=== PATIENT | female | born 1985 | race Caucasian/White ===

== ENCOUNTER 2019-01-10 06:07 | Emergency (ER) | payer BC, OTHER ==
[2019-01-10] MEDS ORDERED: Metoclopramide 10 MG/2 ML SDV IVPUSH ONE (06:19)
[2019-01-10] MEDS ORDERED: HYDROmorphone 0.5 MG/0.5 ML Syringe IVPUSH ONE (06:21)
--- NOTE | 2019-01-10 06:24 | EDM.PDOC ---
ED HPI GENERAL MEDICAL PROBLEM - General Chief Complaint: Neuro Symptoms/Deficits Stated Complaint: STROKE ALERT Time Seen by Provider: 01/10/19 06:10 Source of Information: Reports: Patient History Limitations: Reports: No Limitations - History of Present Illness INITIAL COMMENTS - FREE TEXT/NARRATIVE: 33-year-old female who speaks broken [place] and [place] presents to the ED in the ambulance brought in by her . The patient states that when she got up this morning to get ready for work she was having difficulty raising arms above her head to do her hair. She then started to feel like she might faint she became dizzy and lightheaded but no true vertigo symptoms. She then developed done numbness and tingling in both of her hands and face. She became weak and nearly fainted. She had gone out into her car to drive to work and then decided she was feeling too unwell to drive. She kept talking the horn till her attended her in the driveway. He then was able to lift her out of the vehicle into his vehicle and bring her to the hospital. Patient was brought into the ED per wheelchair. Once into the gurney and as I was speaking with her she started to have nausea and vomiting of bilious material. He is moving all limbs. There is no sign of any focal neurological deficit and her speech is normal. No visual acuity changes. She complains of diffuse cervical neck pain. Some of this is at the base of her neck. She denies any significant headache at this time. She does not believe she could be . Onset: Today Onset Date: 01/10/19 Onset Time: 05:40 Duration: Minutes: Location: Reports: Generalized (Generalized sense of illness with dizziness lightheadedness nausea numbness and tingling in her upper extremities i.e. hypoventilation syndrome. She walked out to her vehicle and started her vehicle without any problems. She started to feel unwell in the vehicle and decided that she should not be driving.) Quality: Reports: Other Severity: Moderate (Camilo weakness with numbness and tingling in her hands and arms and feeling lightheaded and dizzy.) Improves with: Reports: None Worsens with: Reports: None. Denies: Medication Context: Denies: Activity, Exercise, Lifting, Sick Contact, Trauma, Other ( Started to have nausea and vomiting in the ER. She did have nausea at home but did not vomit) Associated Symptoms: Reports: Loss of Appetite, Malaise, Nausea/Vomiting. Denies: Confusion, Chest Pain, Cough, cough w sputum, Diaphoresis, Fever/Chills , Headaches, Rash, Seizure, Shortness of Breath, Syncope Treatments OFFICE COORDINATOR RECEPTIONIST: Reports: Other (see below) (None.) - Related Data Allergies Allergy/AdvReac Type Severity Reaction Status Date / Time No Known Allergies Allergy Verified 01/10/19 06:41 Home Meds: Home Meds Norgestimate-Ethinyl Estradiol [Sprintec 28 Day Tablet] 1 tab PO DAILY 01/10/19 [History] Ondansetron [Zofran] 4 mg BUCCAL Q6H PRN #5 tab 01/10/19 [Rx] Past Medical History : 0 Para: 0 Social & Family History - Living Situation & Occupation Living situation: Reports: Occupation: Employed ED ROS GENERAL - Review of Systems Review Of Systems: See Below Constitutional: Reports: Weakness, Decreased Appetite. Denies: Fever, Chills, Malaise HEENT: Reports: No Symptoms Respiratory: Reports: No Symptoms Cardiovascular: Reports: No Symptoms Endocrine: Reports: No Symptoms GI/Abdominal: Reports: Nausea, Vomiting : Reports: No Symptoms (Started vomiting bilious material in the ED.) Musculoskeletal: Reports: Neck Pain (Diffuse neck pain worse on the left side as compared to the right and pain at the base of her neck.) Skin: Reports: No Symptoms Neurological: Reports: Dizziness, Numbness, Paresthesia (Particular in both hands and periorally.), Tingling, Difficulty Walking (Due to weakness), Weakness. Denies: Pre-Existing Deficit, Seizure, Syncope, Tremors, Trouble Speaking, Change in Speech Psychiatric: Reports: No Symptoms Hematologic/Lymphatic: Reports: No Symptoms Immunologic: Reports: No Symptoms ED EXAM, NEURO - Physical Exam Exam: See Below Exam Limited By: Language Barrier (Mild language barrier. Patient has a strong [place] accent.) General Appearance: Alert, WD/WN, Moderate Distress, Other (Began vomiting during the interview.) Eye Exam: Bilateral Eye: Normal Inspection Throat/Mouth: Normal Inspection, Normal Lips, Normal Oropharynx Head Exam: Atraumatic, Normocephalic Neck: Normal Inspection, Supple, Tender Lateral. No: Lymphadenopathy (L) ( Tender laterally more so in the left side as compared to the right.), Lymphadenopathy (R) Respiratory/Chest: Lungs Clear, Normal Breath Sounds, No Accessory Muscle Use, Respiratory Distress Cardiovascular: Normal Peripheral Pulses, Regular Rate, Rhythm, No Edema, No Gallop, No Murmur, No Rub GI/Abdominal: Normal Bowel Sounds, Soft, Non-Tender, No Organomegaly, No Mass, Pelvis Stable Neurological: Alert, CN II-XII Intact, Normal Reflexes, No Motor/Sensory Deficits, Oriented x 3, Other (No protein needed drift.). No: Abnormal Finger to Nose DTR: 1+: Bicep (R), Bicep (L), Patella (R), Patella (L), Achilles (R), Achilles (L) Back Exam: Normal Inspection, Full Range of Motion. No: CVA Tenderness (L), CVA Tenderness (R) Extremities: Normal Inspection, Normal Range of Motion, Non-Tender Psychiatric: Anxious (Mild) Skin Exam: Cool (Skin is cool and clammy.), Pallor ( Mildly pallid the time of my exam) EKG INTERPRETATION EKG Date: 01/10/19 Time: 06:37 Rhythm: Other Rate (Beats/Min): 52 [place]: Normal P-Wave: Present QRS: Other (There are Q waves in V1 and V2 and near Q-wave in V3. 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 Skews the ST segments in several leads. No true signs of ischemia.) QT: Normal EKG Interpretation Comments: Abnormal ECG Course - Vital Signs Last Recorded V/S: Last Vital Signs Temp 36.1 C 01/10/19 09:10 Pulse 66 01/10/19 09:10 Resp 16 01/10/19 09:10 BP 151/90 H 01/10/19 09:10 Pulse Ox 100 01/10/19 09:10 - Orders/Labs/Meds Orders: Active Orders 24 hr Category Date Time Status EKG Documentation Completion [RC] STAT Care 01/10/19 06:20 Active Labs: Laboratory Tests 01/10/19 01/10/19 01/10/19 Range/Units 06:10 06:10 06:10 WBC 4.01 (3.98-10.04) K/mm3 RBC 4.69 (3.98-5.22) M/mm3 Hgb 14.4 (11.2-15.7) gm/dl Hct 42.1 (34.1-44.9) % MCV 89.8 (79.4-94.8) fl MCH 30.7 (25.6-32.2) pg MCHC 34.2 (32.2-35.5) g/dl RDW Std Deviation 37.8 (36.4-46.3) fL Plt Count 255 (182-369) K/mm3 MPV 8.5 L (9.4-12.3) fl Neut % (Auto) 47.4 (34.0-71.1) % Lymph % (Auto) 38.7 (19.3-51.7) % [place] % (Auto) 9.0 (4.7-12.5) % Eos % (Auto) 4.2 (0.7-5.8) Baso % (Auto) 0.5 (0.1-1.2) % Neut # (Auto) 1.90 (1.56-6.13) K/mm3 Lymph # (Auto) 1.55 (1.18-3.74) K/mm3 [place] # (Auto) 0.36 (0.24-0.36) K/mm3 Eos # (Auto) 0.17 (0.04-0.36) K/mm3 Baso # (Auto) 0.02 (0.01-0.08) K/mm3 PT 10.3 (9.7-12.0) SECONDS INR 0.94 APTT 25 (22-31) SECONDS Sodium 136 (136-145) mEq/L Potassium 3.5 (3.5-5.1) mEq/L Chloride 104 (98-107) mEq/L Carbon Dioxide 25 (21-32) mEq/L Anion Gap 10.5 (5-15) BUN 15 (7-18) mg/dL Creatinine 0.8 (0.55-1.02) mg/dL Est Cr Clr Drug Dosing 106.48 mL/min Estimated GFR (MDRD) > 60 (>60) mL/min BUN/Creatinine Ratio 18.8 H (14-18) Glucose 116 H (74-106) mg/dL POC Glucose (70-105) mg/dL Calcium 8.3 L (8.5-10.1) mg/dL Total Bilirubin 0.2 (0.2-1.0) mg/dL AST 17 (15-37) U/L ALT 26 (14-59) U/L Alkaline Phosphatase 67 (46-116) U/L CK-MB (CK-2) (0-3.6) ng/ml Troponin I (0.00-0.056) ng/mL C-Reactive Protein < 0.2 (<1.0) mg/dL Total Protein 6.9 (6.4-8.2) g/dl Albumin 3.6 (3.4-5.0) g/dl Globulin 3.3 gm/dL Albumin/Globulin Ratio 1.1 (1-2) HCG, Qual (NEGATIVE) Urine Color (Yellow) Urine Appearance (Clear) Urine pH (5.0-8.0) Ur Specific [place] (1.005-1.030) Urine Protein (Negative) Urine Glucose (UA) (Negative) Urine Ketones (Negative) Urine Occult Blood (Negative) Urine Nitrite (Negative) Urine Bilirubin (Negative) Urine Urobilinogen (0.2-1.0) Ur Leukocyte Esterase (Negative) Urine RBC (0-5) /hpf Urine WBC (0-5) /hpf Ur Squamous Epith Cells (0-5) /hpf Urine Bacteria (FEW) /hpf Urine Mucus (FEW) /hpf 01/10/19 01/10/19 01/10/19 Range/Units 06:10 06:10 06:14 WBC (3.98-10.04) K/mm3 RBC (3.98-5.22) M/mm3 Hgb (11.2-15.7) gm/dl Hct (34.1-44.9) % MCV (79.4-94.8) fl MCH (25.6-32.2) pg MCHC (32.2-35.5) g/dl RDW Std Deviation (36.4-46.3) fL Plt Count (182-369) K/mm3 MPV (9.4-12.3) fl Neut % (Auto) (34.0-71.1) % Lymph % (Auto) (19.3-51.7) % [place] % (Auto) (4.7-12.5) % Eos % (Auto) (0.7-5.8) Baso % (Auto) (0.1-1.2) % Neut # (Auto) (1.56-6.13) K/mm3 Lymph # (Auto) (1.18-3.74) K/mm3 [place] # (Auto) (0.24-0.36) K/mm3 Eos # (Auto) (0.04-0.36) K/mm3 Baso # (Auto) (0.01-0.08) K/mm3 PT (9.7-12.0) SECONDS INR APTT (22-31) SECONDS Sodium (136-145) mEq/L Potassium (3.5-5.1) mEq/L Chloride (98-107) mEq/L Carbon Dioxide (21-32) mEq/L Anion Gap (5-15) BUN (7-18) mg/dL Creatinine (0.55-1.02) mg/dL Est Cr Clr Drug Dosing mL/min Estimated GFR (MDRD) (>60) mL/min BUN/Creatinine Ratio (14-18) Glucose (74-106) mg/dL POC Glucose 100 (70-105) mg/dL Calcium (8.5-10.1) mg/dL Total Bilirubin (0.2-1.0) mg/dL AST (15-37) U/L ALT (14-59) U/L Alkaline Phosphatase (46-116) U/L CK-MB (CK-2) 1.9 (0-3.6) ng/ml Troponin I < 0.017 (0.00-0.056) ng/mL C-Reactive Protein (<1.0) mg/dL Total Protein (6.4-8.2) g/dl Albumin (3.4-5.0) g/dl Globulin gm/dL Albumin/Globulin Ratio (1-2) HCG, Qual Negative (NEGATIVE) Urine Color (Yellow) Urine Appearance (Clear) Urine pH (5.0-8.0) Ur Specific [place] (1.005-1.030) Urine Protein (Negative) Urine Glucose (UA) (Negative) Urine Ketones (Negative) Urine Occult Blood (Negative) Urine Nitrite (Negative) Urine Bilirubin (Negative) Urine Urobilinogen (0.2-1.0) Ur Leukocyte Esterase (Negative) Urine RBC (0-5) /hpf Urine WBC (0-5) /hpf Ur Squamous Epith Cells (0-5) /hpf Urine Bacteria (FEW) /hpf Urine Mucus (FEW) /hpf 01/10/19 Range/Units 08:15 WBC (3.98-10.04) K/mm3 RBC (3.98-5.22) M/mm3 Hgb (11.2-15.7) gm/dl Hct (34.1-44.9) % MCV (79.4-94.8) fl MCH (25.6-32.2) pg MCHC (32.2-35.5) g/dl RDW Std Deviation (36.4-46.3) fL Plt Count (182-369) K/mm3 MPV (9.4-12.3) fl Neut % (Auto) (34.0-71.1) % Lymph % (Auto) (19.3-51.7) % [place] % (Auto) (4.7-12.5) % Eos % (Auto) (0.7-5.8) Baso % (Auto) (0.1-1.2) % Neut # (Auto) (1.56-6.13) K/mm3 Lymph # (Auto) (1.18-3.74) K/mm3 [place] # (Auto) (0.24-0.36) K/mm3 Eos # (Auto) (0.04-0.36) K/mm3 Baso # (Auto) (0.01-0.08) K/mm3 PT (9.7-12.0) SECONDS INR APTT (22-31) SECONDS Sodium (136-145) mEq/L Potassium (3.5-5.1) mEq/L Chloride (98-107) mEq/L Carbon Dioxide (21-32) mEq/L Anion Gap (5-15) BUN (7-18) mg/dL Creatinine (0.55-1.02) mg/dL Est Cr Clr Drug Dosing mL/min Estimated GFR (MDRD) (>60) mL/min BUN/Creatinine Ratio (14-18) Glucose (74-106) mg/dL POC Glucose (70-105) mg/dL Calcium (8.5-10.1) mg/dL Total Bilirubin (0.2-1.0) mg/dL AST (15-37) U/L ALT (14-59) U/L Alkaline Phosphatase (46-116) U/L CK-MB (CK-2) (0-3.6) ng/ml Troponin I (0.00-0.056) ng/mL C-Reactive Protein (<1.0) mg/dL Total Protein (6.4-8.2) g/dl Albumin (3.4-5.0) g/dl Globulin gm/dL Albumin/Globulin Ratio (1-2) HCG, Qual (NEGATIVE) Urine Color Yellow (Yellow) Urine Appearance Clear (Clear) Urine pH 7.0 (5.0-8.0) Ur Specific [place] 1.025 (1.005-1.030) Urine Protein 1+ H (Negative) Urine Glucose (UA) Negative (Negative) Urine Ketones Negative (Negative) Urine Occult Blood Trace-intact H (Negative) Urine Nitrite Negative (Negative) Urine Bilirubin Negative (Negative) Urine Urobilinogen 0.2 (0.2-1.0) Ur Leukocyte Esterase Negative (Negative) Urine RBC 5-10 H (0-5) /hpf Urine WBC 0-5 (0-5) /hpf Ur Squamous Epith Cells 0-5 (0-5) /hpf Urine Bacteria Few (FEW) /hpf Urine Mucus Few (FEW) /hpf Meds: Medications Discontinued Medications Generic Name Dose Route Start Last Admin Trade Name Freq PRN Reason Stop Dose Admin Hydromorphone HCl 0.5 mg 01/10/19 06:21 01/10/19 06:45 Dilaudid IVPUSH 01/10/19 06:22 0.5 mg ONETIME ONE Administration Dextrose/Sodium Chloride 1,000 mls @ 150 mls/hr 01/10/19 06:30 01/10/19 06:44 Dextrose 5%-Normal Saline IV 150 mls/hr ASDIRECTED BERTA Administration Metoclopramide HCl 7.5 mg 01/10/19 06:19 01/10/19 06:44 Reglan IVPUSH 01/10/19 06:20 7.5 mg ONETIME ONE Administration Ondansetron HCl 4 mg 01/10/19 07:42 01/10/19 07:54 Zofran IVPUSH 01/10/19 07:43 4 mg ONETIME ONE Administration - Radiology Interpretation Free Text/Narrative:: 33-year-old female attends the ED per ambulance for a where brought her. The patient has a strong [place] accent but was able to answer all my questions appropriate. A stroke alert was called on this patient mostly because she seemed to have generalized weakness I presume. I could find no focal neurological deficit on my brief exam before she started to have nausea and vomiting in the room. She reports she didn't feel good since getting up this morning. She was in the bathroom fixing her hair and felt weakness in her upper extremities trying to fix her hair. She then developed cervical neck pain worse on the left side as compared to the right. Perhaps a headache at the base of her skull. She then developed nausea and numbness and tingling in her upper extremities and periorally. She did go to get into car to go to work but will sitting in the car started to feel worse. She therefore honked the horn repeatedly until her attended her and identified that she was ill. He brought her to the hospital and into the M1 spray. I was able to briefly examine her and start the neuro exam before she started to have nausea and vomiting of bilious material. There is no upper extremity weakness. Motor power and tone were normal. Her nose assessment was normal no pronator drift. She had normal movement of both lower extremities with no focal neurological deficit. Etiology of her nausea and vomiting therefore is inconclusive at this stage. She is cool clammy and pallid to exam compatible with vagal effect. Plan IV will be D5 normal saline at 150 mils per hour. Given Reglan 7.5 mg IV and Dilaudid 0.5 mg IV for neck pain. Reglan of course for nausea and vomiting. Routine labs will be collected. She will have a CT of her head performed. CT as well. Although she seemed to be in sinus rhythm on my exam. - Re-Assessments/Exams Free Text/Narrative Re-Assessment/Exam: 01/10/19 06:50 CT of her brain has been completed. There is no intracranial bleeding or mass effect. She does have a small ischemic area identified near the confluence of the transverse and sagittal sinuses measuring 1.3 cm. High density blood flow is seen around this area within the sinus which is normal and is this is felt not to represent a dural thrombus. Finding is most likely due to an unusual arachnoid cyst and is likely incidental. 01/10/19 07:20 White count is 4.01 with auto differential of 47.4% neutrophils. He hemoglobin is 14.4 with hematocrit of 42.1. Platelet count 255,000. PT is 10.3 with an INR of 0.94 PTT is 25. Sodium 136 with a potassium low-normal at 3.5. Chloride is 104 with a bicarbonate 25. Anion gap is 10.5. BUN is 10 with a creatinine of 0.8. GFR is greater than 60. BUN/creatinine ratio is slightly elevated at 18.8. Glucose is 116. Bedside glucose was 100. Calcium is 8.3. Liver function is normal. CRP is less than 0.2. Total protein 6.9 with an albumin fraction of 3.6. Qualitative beta-hCG is negative. 01/10/19 07:29 she is alert oriented and neuro exam is completed and is completely normal. It appears that she developed a vasovagal reflex which in turn dropped her heart rate and made her feel very faint likely due to drop in blood pressure. Her reports that she was very weak on both sides and could not get out of the car known volition due to weakness and she was probably near tetany I suspect. They were reassured that no signs of stroke are present. A pressure remains slightly elevated likely due to adrenaline effect. I 've ordered her cardiac markers due to her abnormal ECG which I was not anticipating and she has no complaints of chest pain or any known past history of cardiac event. She works at [employer] and states that she usually brings her own food and does not eat out so very little chance of foodborne illness. It appears that she is developed a viral gastritis at this point in time. 01/10/19 07:43 is suddenly feeling more nauseated. She'll therefore be given Zofran 4 mg IV. She will need to be road tested before discharge at home. Departure - Departure Time of Disposition: 09:00 Disposition: Home, Self-Care 01 Condition: Fair Clinical Impression: Vasovagal near syncope Nausea and vomiting Qualifiers: Vomiting type: bilious vomiting Qualified Code(s): R11.14 - Bilious vomiting - Discharge Information *PRESCRIPTION DRUG MONITORING PROGRAM REVIEWED*: Not Applicable *COPY OF PRESCRIPTION DRUG MONITORING REPORT IN PATIENT CHUCK: Not Applicable Prescriptions: Ondansetron [Zofran] 4 mg BUCCAL Q6H PRN #5 tab PRN Reason: nausea or vomiting Instructions: Nausea and Vomiting, Adult, [id number], Near-Syncope, Easy-to- Read Referrals: PCP,None [Primary Care Provider] - Forms: ED Department Discharge, ED Return to Work/School Form Additional Instructions: Evaluation the emergency room today in regards to development of generalized weakness and sense of going to faint while getting ready for work this morning. This worsened after you got into the car and got ready to drive to work. Her had to remove you from the vehicle because of generalized weakness on both sides of your body due to hyperventilation syndrome and near tetany. There is no signs of stroke on initial exam just weakness of the upper extremities due to recent hyperventilation syndrome. However you did develop rather precipitous nausea and vomiting of bilious material. A stroke had been called and therefore CT scan of the head as part of the stroke protocol. It is completely normal other than a small subarachnoid cyst which were born with. Lab test to suggest a possible viral infection. It is suspect that you have contracted a viral gastritis and you may or may not develop diarrhea later today. You have been given a medication called Reglan 7.5 mg IV to arrest nausea and vomiting while in the ED. Suggest plenty of rest today. Clear fluids such as Gatorade or Powerade ideally 4-5 ounces sipped per hour. When hungry towards try soda crackers first. If tolerated may have some bread with jam on it. If tolerated then may advance to soup broth or turkey rice chicken noodle soup tonight as long as you don't develop any diarrhea. If you develop diarrhea you should avoid all dairy products and no apple juice or grape juice until stools are formed back up. Off work today. If no further vomiting or illness occurs today you tentatively May return to work tomorrow. - My Orders Last 24 Hours: My Active Orders 01/10/19 06:20 EKG Documentation Completion [RC] STAT - Assessment/Plan Last 24 Hours: My Active Orders 01/10/19 06:20 EKG Documentation Completion [RC] STAT
[2019-01-10] MEDS ORDERED: Dextrose 5%-0.9% NaCl 1,000 ML IV SCH (06:30)
--- NOTE | 2019-01-10 06:49 | CT ---
Head CT Technique: Multiple axial sections through the brain were obtained. Intravenous contrast was not utilized. Comparison: No prior intracranial imaging is available. Findings: Ventricles along with basal cisterns and sulci over the convexities are within normal limits for the patient's age. No abnormal parenchymal densities are seen. No evidence of intracranial hemorrhage. No midline shift or mass effect is seen. No evidence of intracranial hemorrhage. Cystic area is identified near the confluence of the transverse and sagittal sinuses measuring 1.3 cm. High density blood is seen around this area within the sinus (which is normal) and this is felt not to represent a dural thrombus. Finding is most likely due to unusual arachnoid cyst and is likely incidental. Bone window settings were reviewed which shows no acute calvarial abnormality. Visualized mastoid sinuses are clear. Visualized paranasal sinuses are clear. Impression: 1. Cystic area as noted above most likely representing unusual arachnoid cyst and is most likely incidental. If patient has persistent symptoms, MRI could be obtained to confirm this impression. 2. No evidence of intracranial hemorrhage. Nothing acute is otherwise seen on noncontrast head CT exam. Diagnostic code #3
[2019-01-10] MEDS ORDERED: Ondansetron 4 MG/2 ML SDV IVPUSH ONE (07:42)
== END 2019-01-10 09:20 | disposition home or self-care (01) ==
LOC: JD.ED 06:07
DX: R55 Syncope and collapse (principal); R11.14 Bilious vomiting; R11.0 Nausea
CPT/HCPCS: 36415; 70450; 80053; 81001; 82553; 82962; 84484; 84703; 85025; 85610; 85730; 86140; 93005; 96361; 96374; 96375; 99285; J1170; J2405; J2765; J7042